=== PATIENT | female | born 1995 | race Caucasian/White ===

== ENCOUNTER 2018-03-17 12:44 | Emergency (ER) | payer OTHER ==
[~2018-03-17] VITALS: Ht 157.5 cm; Wt 67.0 kg
[2018-03-17 12:52] VITALS: TEMP 36.7; Ht 157.5 cm; Wt 67.0 kg
[2018-03-17] MEDS ORDERED: SODIUM CHLORIDE 0.9% 1000ML 1,000 ML IV STA (13:01)
[2018-03-17 13:36] LABS: BASO % 0.2 %; BASO ABS # 0.01 K/uL (0-0.2); EOS % 1.7 %; EOS ABS # 0.11 K/uL (0-0.5); HEMATOCRIT 41.2 % (37-47); HEMOGLOBIN 13.6 g/dL (12.0-16.0); IG# 0.01 K/uL (0.00-0.02); LYMPH % 24.4 %; LYMPH ABS # 1.58 K/uL (1.2-3.4); MEAN CELL VOLUME 80.2 fL (80-100); MEAN CORPUSCULAR HEMOGLOBIN 26.5 pg (25-34); MEAN PLATELET VOLUME 10.5 fL (7.4-10.4); MONO % 5.4 %; MONO ABS # 0.35 K/uL (0.11-0.59); NEUT % 68.1 %; NEUT ABS # 4.42 K/uL (1.4-6.5); PLATELET COUNT 208 K/uL (130-400); RED CELL DISTRIBUTION WIDTH CV 13.3 % (11.5-14.5); RED CELL DISTRIBUTION WIDTH SD 38.3 fL (36.4-46.3); WHITE BLOOD COUNT 6.48 K/uL (4.8-10.8)
[2018-03-17 14:08] LABS: BLOOD UREA NITROGEN 15 mg/dl (7-18); CALCIUM 8.4 mg/dl (8.5-10.1); CARBON DIOXIDE 28 mmol/L (21-32); GLUCOSE 89 mg/dl (70-99); SODIUM 137 mmol/L (136-145)
[2018-03-17] MEDS ORDERED: AMPH20CA3 PO (14:09)
--- NOTE | 2018-03-17 14:30 | EMERGENCY ROOM VISIT NOTE ---
History Report prepared by Marleyiblinda: Lroa Reis Under the Supervision of: Dr. Alfred Saenz D.O. First contact with patient: 13:00 Chief Complaint: SYNCOPE Stated Complaint: SYNCOPE Nursing Triage Summary: pt here via [facility] from [facility]. pt was at [employer] to get food and felt hot, remembers falling into door. pt states did not eat yet today. pt states has had syncopal events previously. pt has no injuries, states only has some dizziness when getting up. History of Present Illness The patient is a 22 year old female who presents to the Emergency Room with complaints of an episode of syncope beginning prior to arrival. She states she was at a restaurant when she began feeling dizzy, and went outside to get some air. The patient notes she sat down for a bit, but the feeling did not pass, so she walked back into the restaurant, at which point she passed out and fell into the doorway. She reports she has had this "blurry/dizzy" feeling before, but usually at home, and the feeling always passes after laying down. The patient notes she had not eaten yet today, but ate as usual yesterday. She denies any injury in the fall, and denies recent vomiting, diarrhea, fevers, or abdominal pain. The patient notes her LNMP was 1.5 weeks ago. 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 A total of 10 systems reviewed and were otherwise negative. Past Medical & Surgical Medical Problems: (1) No chronic problems No chronic problems Family History No pertinent family history stated. 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 GENERAL: Non-toxic in appearance. INTEGUMENTARY: Warm, dry, and [place]. HEAD: Normocephalic. EYES: without scleral icterus or trauma. ENT/OROPHARYNX: clear and moist. LYMPHADENOPATHY/NECK: Is supple without lymphadenopathy or meningismus. RESPIRATORY: Lungs clear and equal. CARDIOVASCULAR: Regular rate and rhythm. GI/ABDOMEN: Soft and nontender. No organomegaly or pulsatile mass. No rebound or guarding. Normal bowel sounds. EXTREMITIES: Warm and well perfused. BACK: No CVA tenderness. NEUROLOGICAL: Intact without focal deficits. PSYCHIATRIC: normal affect. MUSCULOSKELETAL: Normally developed with good muscle tone. Medical Decision & Procedures Laboratory Results 03/17/18 13:25 Red Blood Count 5.14, Mean Corpuscular Volume 80.2, Mean Corpuscular Hemoglobin 26.5, Mean Corpuscular Hemoglobin Concent 33.0, Mean Platelet Volume 10.5, Neutrophils (%) (Auto) 68.1, Lymphocytes (%) (Auto) 24.4, Monocytes (%) (Auto) 5.4, Eosinophils (%) (Auto) 1.7, Basophils (%) (Auto) 0.2, Neutrophils # (Auto) 4.42, Lymphocytes # (Auto) 1.58, Monocytes # (Auto) 0.35, Eosinophils # (Auto) 0.11, Basophils # (Auto) 0.01 03/17/18 13:25 Test 03/17/18 13:25 White Blood Count 6.48 K/uL (4.8-10.8) Red Blood Count 5.14 M/uL (4.2-5.4) Hemoglobin 13.6 g/dL (12.0-16.0) Hematocrit 41.2 % (37-47) Mean Corpuscular Volume 80.2 fL (80-100) Mean Corpuscular Hemoglobin 26.5 pg (25-34) Mean Corpuscular Hemoglobin Concent 33.0 g/dl (32-36) Platelet Count 208 K/uL (130-400) Mean Platelet Volume 10.5 fL (7.4-10.4) Neutrophils (%) (Auto) 68.1 % Lymphocytes (%) (Auto) 24.4 % Monocytes (%) (Auto) 5.4 % Eosinophils (%) (Auto) 1.7 % Basophils (%) (Auto) 0.2 % Neutrophils # (Auto) 4.42 K/uL (1.4-6.5) Lymphocytes # (Auto) 1.58 K/uL (1.2-3.4) Monocytes # (Auto) 0.35 K/uL (0.11-0.59) Eosinophils # (Auto) 0.11 K/uL (0-0.5) Basophils # (Auto) 0.01 K/uL (0-0.2) RDW Standard Deviation 38.3 fL (36.4-46.3) RDW Coefficient of Variation 13.3 % (11.5-14.5) Immature Granulocyte % (Auto) 0.2 % Immature Granulocyte # (Auto) 0.01 K/uL (0.00-0.02) Anion Gap 7.0 mmol/L (3-11) Est Creatinine Clear Calc Drug Dose 89.5 ml/min Estimated GFR () 106.7 Estimated GFR (Non- 92.0 BUN/Creatinine Ratio 16.2 (10-20) Calcium Level 8.4 mg/dl (8.5-10.1) Troponin I < 0.015 ng/ml (0-0.045) Laboratory results as stated above per my review. Medications Administered Medications (Trade) Dose Ordered Sig/Jose Route Start Time Stop Time Status Last Admin Dose Admin Sodium Chloride 1,000 ml @ 999 mls/hr Q1H1M STAT IV 03/17/18 13:01 03/17/18 14:01 DC 03/17/18 13:37 999 MLS/HR ECG Per My Interpretation Indication: syncope Rate (beats per minute): 63 Rhythm: normal sinus Findings: no ectopy, other (no ST elevation) ED Course 1301: Ordered Sodium Chloride 1000 ml @ 999 mls/hr IV 1308: Previous medical records were reviewed. The patient was evaluated in room A11B. A complete history and physical examination was performed. 1431: On reevaluation, the patient is resting. I discussed the results and findings with the patient. She verbalized agreement of the treatment plan. The patient was discharged home. Medical Decision Differential includes acute cardiac dysrhythmia, microinfarction, CVA, TIA, dehydration, anemia, electrolyte disturbance, seizure, trauma, intracranial bleeding, acute vascular catastrophe, thoracic aortic dissection, PE, abdominal aortic aneurysm rupture, ectopic rupture. This is a 22-year-old female who presents to the ED with a chief complaint of syncope. The patient states that she had not eaten today yet. She was going to the restaurant to get some bagels when she became lightheaded. She states that she sat down outside of the restaurant and then got up to go inside as her symptoms did not resolve and as she was standing up to go inside, she passed out and fell. She did not hurt herself. Her vital signs here were normal. She was not orthostatic. She was transported here by EMS. Her exam did not reveal any trauma or other abnormalities. CBC and PRP was unremarkable. Troponin was negative. EKG shows a sinus rhythm at a rate of 63. The patient was hydrated. She was fed. She was feeling fine. She was felt to be stable for discharge. Medication Reconcilliation Current Medication List: was personally reviewed by me Blood Pressure Screening Patient's blood pressure: Normal blood pressure Blood pressure disposition: Did not require urgent referral Impression Primary Impression: Syncope Scribe Attestation The scribe's documentation has been prepared under my direction and personally reviewed by me in its entirety. I confirm that the note above accurately reflects all work, treatment, procedures, and medical decision making performed by me. Departure Information Dispostion Home / Self-Care Referrals No Doctor, Assigned (PCP) Forms HOME CARE DOCUMENTATION FORM, IMPORTANT VISIT INFORMATION Patient Instructions Fainting (Syncope) - [facility], [facility] Additional Instructions Follow-up with your doctor for further care and evaluation in 1-2 days. Return to the emergency department for worsening or new symptoms or any concerns. You have been examined and treated today on an emergency basis only. This is not a substitute for, or an effort to provide, complete comprehensive medical care. It is impossible to recognize and treat all injuries or illnesses in a single emergency department visit. It is therefore important that you follow up closely with your doctor. Call as soon as possible for an appointment.
[2018-03-17 14:42] VITALS: BP 100/64; PULSE 79; O2SAT 100
== END 2018-03-17 14:44 | disposition home or self-care (01) ==
LOC: C.EDA 12:49
DX: R55 Syncope and collapse (principal); Z79.899 Other long term (current) drug therapy